=== PATIENT | male | born 1990 | race Caucasian/White ===

== ENCOUNTER 2017-06-23 13:39 | Emergency (ER) | payer OTHER ==
--- NOTE | 2017-06-23 14:11 | EDM.PDOC ---
ED HPI GENERAL MEDICAL PROBLEM - General Chief Complaint: Upper Extremity Injury/Pain Stated Complaint: FALL Time Seen by Provider: 06/23/17 14:10 Source of Information: Reports: Patient - History of Present Illness INITIAL COMMENTS - FREE TEXT/NARRATIVE: HISTORY AND PHYSICAL: History of present illness: [26-year-old male presents with left shoulder pain/neck pain/headache he rates 7 out of 10 for each problem nonradiating Night he was entering his pickup his foot slipped on the floor mat he fell back landing on his left shoulder neck and head now complaining of pain otherwise no apparent distress No fever nausea vomiting chills sweats no chest pain shortness breath dizziness or palpitation no bowel or urine symptoms ] Review of systems: As per history of present illness and below otherwise all systems reviewed and negative. Past medical history: As per history of present illness and as reviewed below otherwise noncontributory. Surgical history: As per history of present illness and as reviewed below otherwise noncontributory. Social history: No reported history of drug or alcohol abuse. Family history: As per history of present illness and as reviewed below otherwise noncontributory. Physical exam: HEENT: Atraumatic, normocephalic, pupils reactive, negative for conjunctival pallor or scleral icterus, mucous membranes moist, throat clear, neck supple, nontender, trachea midline. Lungs: Clear to auscultation, breath sounds equal bilaterally, chest nontender. Heart: S1S2, regular, negative for clicks, rubs, or JVD. Abdomen: Soft, nondistended, nontender. Negative for masses or hepatosplenomegaly. Negative for costovertebral tenderness. Pelvis: Stable nontender. Genitourinary: Deferred. Rectal: Deferred. Extremities: Atraumatic, negative for cords or calf pain. Neurovascular unremarkable. Neuro: Awake, alert, oriented. Cranial nerves II through XII unremarkable. Cerebellum unremarkable. Motor and sensory unremarkable throughout. Exam nonfocal. Left upper extremity no pain with head movement full range of motion passively however even this is somewhat limited due to pain overall the exam is limited due to pain limb is neurovascularly intact wrist and elbow and affected Diagnostics: [Head CT no contrast Cervical spine no contrast Left shoulder complete ] Therapeutics: []Flexeril 10 mg by mouth 3 times a day when necessary #30 no refill Toradol 10 mg by mouth 3 times a day when necessary #15 no refill Ice 20 minute intervals Sling for comfort Follow-up with sore throat in 7-10 days Impression: Muscle spasm [Contusion Neck pain Left shoulder pain] Cannot rule out rotator cuff or labrum tear etc. due to limited exam secondary to pain Definitive disposition and diagnosis as appropriate pending reevaluation and review of above. Left Shoulder Pain Score (Numeric/FACES): 8 - Related Data Allergies Allergy/AdvReac Type Severity Reaction Status Date / Time codeine Allergy Other Verified 06/23/17 13:58 Home Meds: Home Meds Escitalopram [Lexapro] 10 mg PO DAILY 06/23/17 [History] Review of Systems - Review of Systems Review Of Systems: ROS reveals no pertinent complaints other than HPI. ED EXAM, GENERAL - Physical Exam Exam: See Below Course - Vital Signs Last Recorded V/S: Last Vital Signs Temp 98.2 F 06/23/17 14:02 Pulse 70 06/23/17 14:02 Resp 20 06/23/17 14:02 BP 116/68 06/23/17 14:02 Pulse Ox 100 06/23/17 14:02 Departure - Departure Time of Disposition: 15:39 Disposition: Home, Self-Care 01 Condition: Good Clinical Impression: Muscle spasm, Contusion - Discharge Information Referrals: PCP,None [Primary Care Provider] - Forms: ED Department Discharge Additional Instructions: Medication as prescribed Return if symptoms persist or worsen Sling for comfort Work note for 48 hours off Follow-up with orthopedist, call phone number below to schedule appropriate follow-up [facility] [address], [address] [place] [address] my orthopedic The following information is given to patients seen in the emergency department who are being discharged to home. This information is to outline your options for follow-up care. We provide all patients seen in our emergency department with a follow-up referral. The need for follow-up, as well as the timing and circumstances, are variable depending upon the specifics of your emergency department visit. If you don't have a primary care physician on staff, we will provide you with a referral. We always advise you to contact your personal physician following an emergency department visit to inform them of the circumstance of the visit and for follow-up with them and/or the need for any referrals to a consulting specialist. The emergency department will also refer you to a specialist when appropriate. This referral assures that you have the opportunity for follow-up care with a specialist. All of these measure are taken in an effort to provide you with optimal care, which includes your follow-up. Under all circumstances we always encourage you to contact your private physician who remains a resource for coordinating your care. When calling for follow-up care, please make the office aware that this follow-up is from your recent emergency room visit. If for any reason you are refused follow-up, please contact the [facility] emergency department at and asked to speak to the emergency department charge nurse.
--- NOTE | 2017-06-23 14:54 | CR ---
EXAMINATION: Left shoulder HISTORY: Pain COMPARISON: None TECHNIQUE: 3 views FINDINGS/IMPRESSION: There is no acute osseous abnormality, dislocation, or fracture. Calcific densit ies project over the humeral head, possibly representing early calcific tendinitis. Joint spaces and bone mineralization are otherwise preserved.
--- NOTE | 2017-06-23 15:24 | CT ---
EXAMINATION: Non contrast CT head. Coronal and sagittal reformats. HISTORY: Pain FINDINGS: No evidence of intra or extra axial hemorrhage, mass, midline shift, hydrocephalus or edema. No hypoattenuation changes in the major vascular territories to suggest acute infarct. No abnormal intracranial calcifications are detected. No evidence of substantial vascular calcificat ions. Paranasal sinuses and mastoid air cells are well aerated without substantial findings. Orbits and gl obes are symmetric. Pituitary fossa appears unremarkable. Calvarium is intact. No evidence of skull fracture. IMPRESSION: No acute intracranial findings.
--- NOTE | 2017-06-23 15:29 | CT ---
EXAMINATION: CT cervical spine HISTORY: Pain COMPARISON: None TECHNIQUE: Axial CT images obtained through the cervical spine without contrast. Coronal and sagittal reconstructions obtained. FINDINGS: The cervical spinal alignment is normal. The vertebral body heights and disc spaces appear well-maintained. There is no fracture or acute osseous abnormality. Bone mineralization is normal. Pa ravertebral soft tissues are normal. Lung apices are clear. IMPRESSION: No acute cervical spinal abnormality.
== END 2017-06-23 15:51 | disposition home or self-care (01) ==
LOC: MW.ED 13:39
DX: S40.012A Contusion of left shoulder, initial encounter (principal); M62.838 Other muscle spasm; M54.2 Cervicalgia; W19.XXXA Unspecified fall, initial encounter; Z88.5 Allergy status to narcotic agent
CPT/HCPCS: 70450; 70450-26; 72125; 72125-26; 73030-26-LT; 73030-LT; 99283

== ENCOUNTER 2018-12-06 15:05 | Emergency (ER) | payer SELFPAY ==
[2018-12-06] MEDS ORDERED: Tetracaine HCl/PF 0.5% 4 ML Bottle ONE (15:24)
[2018-12-06] MEDS ORDERED: Ketorolac 60 MG/2 ML SDV IM ONE (15:37)
[2018-12-06] MEDS ORDERED: Acetaminophen/HYDROcodone 325-10 MG Tab PO ONE (15:45)
[2018-12-06] MEDS ORDERED: Tetracaine HCl/PF 0.5% 4 ML Bottle EYEBOTH ONE (15:48)
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
== END 2018-12-06 17:09 | disposition home or self-care (01) ==
LOC: MW.ED 15:05
DX: H57.13 Ocular pain, bilateral (principal); Z88.5 Allergy status to narcotic agent; Z79.899 Other long term (current) drug therapy
CPT/HCPCS: 96372; 99283; J1885